=== PATIENT | male | born 1980 | race Caucasian/White ===

== ENCOUNTER 2022-08-01 15:03 | Outpatient (CLI) | payer BC, SELFPAY ==
[2022-08-03 07:53] LABS: Testosterone, Adult Male 515 ng/dL (300-890)
== END 2022-08-01 15:04 | disposition home or self-care (01) ==
PROVIDERS: PCP Family Medicine; Visit Provider Physician Assistant Medical
DX: R68.82 Decreased libido (principal)
CPT/HCPCS: 84403

== ENCOUNTER 2024-12-24 15:39 | Outpatient (CLI) | payer BC, SELFPAY | END 2024-12-24 15:40 | disposition home or self-care (01) | PROVIDERS: PCP Physician Assistant Medical; Visit Provider Physician Assistant Medical | DX: Z13.6 Encounter for screening for cardiovascular disorders (principal); Z13.29 Encounter for screening for other suspected endocrine disorder; Z13.9 Encounter for screening, unspecified | CPT/HCPCS: 80053; 80061; 84443 ==

== ENCOUNTER 2025-04-13 14:55 | Outpatient (CLI) | payer BC, SELFPAY | END 2025-04-13 14:56 | disposition home or self-care (01) | LOC: NFLDREF 04-14 15:52 | PROVIDERS: PCP Physician Assistant Medical; Referring Provider Physician Assistant Medical; Visit Provider Physician Assistant Medical | DX: E78.1 Pure hyperglyceridemia (principal); R79.89 Other specified abnormal findings of blood chemistry | CPT/HCPCS: 80061; 84450; 84460 ==